=== PATIENT | female | born 1960 | race Caucasian/White ===

== ENCOUNTER 2017-04-20 07:07 | Day surgery (SDC) | payer OTHER ==
[2017-04-20] VITALS (8 sets, daily range): BP systolic 107–155; BP diastolic 55–85; PULSE 66–79; RESP 14–20; Ht 157.5 cm; Wt 100.0 kg
[~2017-04-20] VITALS: Ht 157.5 cm; Wt 100.0 kg
[2017-04-20] MEDS ORDERED: RANI150T5 PO (08:17)
[2017-04-20] MEDS ORDERED: LISI-313 PO (08:18)
[2017-04-20] MEDS ORDERED: ESOM20CA PO (08:18)
[2017-04-20] MEDS ORDERED: ASPI-664 PO (08:19)
[2017-04-20] MEDS ORDERED: FENO145T19 PO (08:19)
[2017-04-20] MEDS ORDERED: ATOR40TA68 PO (08:20)
[2017-04-20] MEDS ORDERED: CYAN100 PO (08:21)
[2017-04-20] MEDS ORDERED: LIPA1CAP45 PO (08:21)
[2017-04-20 08:24] LABS: ADD SCAN DIFF NO
[2017-04-20] MEDS ORDERED: CYAN500T46 SL (08:24)
[2017-04-20 08:32] LABS: BASOPHIL # 0.1 10^3/ul (0.0-0.1); EOSINOPHILS # 0.1 10^3/ul (0.0-0.5); EOSINOPHILS % 1.5 % (0.0-7.0); HEMATOCRIT 36.6 % (37.0-47.0); HEMOGLOBIN 12.4 g/dl (12.0-16.0); LYMPHOCYTES # 2.7 10^3/ul (0.8-2.9); LYMPHOCYTES % 50.9 % (15.0-51.0); MEAN CORPUSCULAR HEMOGLOBIN 30.1 pg (29.0-33.0); MEAN CORPUSCULAR HGB CONC 33.9 g/dl (32.0-37.0); MEAN CORPUSCULAR VOLUME 88.8 fl (82.0-101.0); MEAN PLATELET VOLUME 10.2 fl (7.4-10.4); MONOCYTE # 0.4 10^3/ul (0.3-0.9); MONOCYTES % 7.5 % (0.0-11.0); NEUTROPHILS % 38.9 % (39.0-77.0); PLATELET COUNT 169 10^3/UL (140-415); RED BLOOD COUNT 4.12 10^6/ul (4.20-5.40); RED CELL DISTRIBUTION WIDTH 12.9 % (11.5-14.5); WHITE BLOOD COUNT 5.2 10^3/ul (4.8-10.8)
[2017-04-20 08:51] LABS: CALCIUM 9.6 mg/dl (8.4-10.2); CREATININE 0.62 mg/dl (0.44-1.00); POTASSIUM 4.8 mmol/L (3.5-5.1)
[2017-04-20] MEDS ORDERED: CIPROFLOXACIN 400MG/D5W 200 ML IVPB ONE (09:00)
[2017-04-20] MEDS ORDERED: FENTAnyl 50 MCG/ML VIAL ONE (09:07)
[2017-04-20] MEDS ORDERED: ROCURONIUM 50 MG INJ ONE (09:07)
[2017-04-20] MEDS ORDERED: PROPOFOL 20 ML ONE (09:07)
[2017-04-20] MEDS ORDERED: SUCCINYLCHOLINE CHLORIDE 100 MG/5 ML SYG IV ONE (09:07)
[2017-04-20] MEDS ORDERED: ONDANSETRON 4 MG INJ ONE (09:08)
[2017-04-20] MEDS ORDERED: DEXAMETHASONE 4 MG/ML 1 ML INJ ONE (09:08)
[2017-04-20] MEDS ORDERED: LIDOCAINE 1% (MDV) 20 ML INJ ONE (09:08)
[2017-04-20] MEDS ORDERED: METOCLOPRAMIDE 10 MG INJ ONE (09:37)
[2017-04-20] MEDS ORDERED: ONDANSETRON 4 MG INJ IV PRN (10:00)
[2017-04-20] MEDS ORDERED: DIPHENHYDRAMINE 50 MG INJ IV PRN (10:00)
[2017-04-20] MEDS ORDERED: hydrALAzine 20 MG INJ IV PRN (10:00)
[2017-04-20] MEDS ORDERED: HYDROmorphONE (0.2 MG/ML) 10ML SYG IV PRN ×2 (10:00)
[2017-04-20] MEDS ORDERED: FENTAnyl 50 MCG/ML VIAL IV PRN ×2 (10:00)
[2017-04-20] MEDS ORDERED: LABETALOL HCL 20MG INJ IV PRN (10:00)
--- NOTE | 2017-04-20 15:33 | RADRPT ---
PROCEDURE: Intraoperative imaging for ERCP with fluoroscopy. CLINICAL INDICATION: Right upper quadrant pain. Intraoperative. TECHNIQUE: 4 images of the right upper quadrant of the abdomen were obtained in the operating room with an image intensifier. No radiologist was in attendance. 3.5 seconds of fluoroscopy time was used. COMPARISON: No prior study is available for comparison. FINDINGS: Images demonstrate the endoscope in position. Contrast was injected into the common bile duct. Juan gical clips are present from previous cholecystectomy. The common bile duct is mildly dilated. Mul tiple filling defects are present in the common bile duct consistent with stones or air bubbles. A balloon sweep was made. The pancreatic duct was not injected. IMPRESSION: 1. ERCP as described above. RPTAT: QQ .Benny Cueva MD, Date Time Electronically viewed and signed by .Benny Cueva MD, MD on 04/20/2017 15:33 .R/
--- NOTE | 2017-05-10 13:12 | GILP ---
DATE OF PROCEDURE: 04/20/2017 PROCEDURE PERFORMED: Endoscopic retrograde cholangiopancreatography. INDICATION: This 57-year-old female had a bile duct stone for which she underwent sphincterotomy and placement of stent at some other facility. The stent was kept for four years. This was confirmed on endoscopic finding by another catalog specialist at [place]. She was referred to the office for removal of the stent. DESCRIPTION OF PROCEDURE: The risks of the procedure, related and unrelated complications, anesthetic risks, alternatives discussed. Informed consent was obtained. The patient was brought to the OR, intubated, and placed in prone position. After optimum sedation, the scope was passed with much ease into the esophagus, advanced further down into the stomach and duodenum. Surprisingly, no stent was identified. This was witnessed by everybody in the room. Bile duct was selectively cannulated. Cholangiogram obtained. Multiple sweepings done with the 12-mm balloon. The balloon was exited easily. Drainage was excellent so it was decided to remove the scope. The scope was removed with excellent patient tolerance. IMPRESSION: 1. No stent was identified. 2. Cholangiogram was clean. No stone was identified. PLAN: Follow the patient as an outpatient. Monitor LFTs. This was discussed with the and also the son, face to face for 15 minutes. It was difficult to convince them that I could not locate the stent. ADDENDUM: There was a delay in dictation because dictation lines [place] were [place] working. Dictated By: Donell Moreno MD /[email or web address] /Document#: [id number] ; primary care physician
== END 2017-04-20 11:35 | disposition home or self-care (01) ==
LOC: SDS 07:07
PROVIDERS: ATTEND Internal Medicine Gastroenterology
DX: K80.50 Calculus of bile duct without cholangitis or cholecystitis without obstruction (principal); I10 Essential (primary) hypertension; E78.5 Hyperlipidemia, unspecified; E66.9 Obesity, unspecified; Z68.41 Body mass index [BMI] 40.0-44.9, adult
CPT/HCPCS: 43260; 74330; 80048; 85025; J0744; J1100; J2405; J2765; J3010; J7999; Z7512; Z7610